=== PATIENT | male | born 1960 | race Caucasian/White ===

== ENCOUNTER 2021-05-27 12:16 | Emergency (ER) | payer BC, SELFPAY ==
[2021-05-27 12:52] VITALS: BP 131/81; PULSE 72; RESP 17; TEMP 36.4; O2SAT 96
--- NOTE | 2021-05-27 13:41 | PC.NURSE ---
Patient was triaged, and sent back into waiting room to wait for available room. patient reports he is unable to wait any longer and wished to leave. Patient AxO at this time. Ambulated self from ED.
== END 2021-05-27 13:41 | disposition left against medical advice (07) ==
LOC: ANHED 13:51
PROVIDERS: PCP Internal Medicine
DX: S61.217A Laceration without foreign body of left little finger without damage to nail, initial encounter (principal)
CPT/HCPCS: 99199

== ENCOUNTER → 2021-06-14 15:50 | Outpatient (CLI) | payer BC, SELFPAY ==
--- NOTE | ~2021-06-14 | XR_ITS ---
XR lumbar spine 2-3V DATE: 06/14/2021 16:03 INDICATION: Lumbar pain. Sciatica. TECHNIQUE: AP, lateral, coned lateral lumbosacral views COMPARISON: None FINDINGS: Diffuse osteopenia. Mild degenerative spurring of the lower thoracic spine. There is moderate loss of height and anterior wedging at T12, likely due to an old compression fractu re. There is minimal levoscoliosis of the lumbar spine. The lumbar pedicles and included lower thoracic pedicles are intact. No lumbar spine fracture or bone destruction is evident. The lumbar and lumbosacral interspaces are w ell preserved. The sacroiliac joints appear normal. Surgical clips overlie the left mid to upper abdomen. 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
== END ==
DX: M99.13 Subluxation complex (vertebral) of lumbar region (principal); M54.31 Sciatica, right side; M85.88 Other specified disorders of bone density and structure, other site
CPT/HCPCS: 72100

== ENCOUNTER 2023-05-07 09:31 | Outpatient (CLI) | payer BC, SELFPAY ==
--- NOTE | ~2023-05-07 | XR_ITS ---
Clinical Indication: Pneumonia PA and lateral views of the chest: Comparison: None Findings: The lungs are clear, without evidence of focal consolidation or pleural effusion. Cardiome diastinal silhouette is within normal limits. Bones and soft tissues are unremarkable. Impression: Normal chest. Reviewed, dictated and finalized at [facility]. [employer]OR Impression: Normal chest.
== END 2023-05-07 09:32 | disposition home or self-care (01) ==
LOC: ANHIMG 09:37
PROVIDERS: PCP Internal Medicine; Visit Provider Internal Medicine
DX: J18.9 Pneumonia, unspecified organism (principal)
CPT/HCPCS: 71046

== ENCOUNTER 2023-09-15 09:00 | Emergency (ER) | payer BC, SELFPAY ==
--- NOTE | ~2023-09-15 | XR_ITS ---
EXAMINATION: XR chest 1V portable DATE: 09/15/2023 10:45 INDICATION: Cough and chills TECHNIQUE: frontal view of the chest was obtained. COMPARISON: Chest radiograph dated 05/17/2023 FINDINGS: The lungs are clear with no focal airspace opacities, pulmonary edema, pleural effusion or pneumothor ax. The cardiomediastinal silhouette is normal. IMPRESSION: 1. No acute cardiopulmonary disease. Reviewed, dictated and finalized at location A.
[2023-09-15 09:00] VITALS: BP 127/88; PULSE 96; RESP 16; TEMP 36.6; O2SAT 98
[2023-09-15 10:31] VITALS: PULSE 86; RESP 18; O2SAT 99
[2023-09-15 10:51] LABS: Influenza A QL RT-PCR Negative (Negative); Influenza B QL RT-PCR Negative (Negative); RSV RNA, RT-PCR Negative (Negative); SARS-CoV-2 RNA PCR Negative (Negative)
--- NOTE | 2023-09-15 10:53 | ED.GENADULT ---
HPI - General Adult General Chief complaint: Upper Respiratory Infection Stated complaint: COUGH,CONGESTION,CHILLS Time Seen by Provider: 09/15/23 10:25 History of Present Illness HPI narrative: 63-year-old male presenting to the emergency department for evaluation for multiple complaints including postnasal drip cough congestion and gastritis. Patient states over the last few days he has been taking increased ibuprofen. Patient denies any cardiac history Related Data Allergies Allergy/AdvReac Type Severity Reaction Status Date / Time No Known Allergies Allergy Mild Verified 05/27/21 12:54 Review of Systems Review of Systems: All systems reviewed & are unremarkable except as noted in HPI and below Exam Narrative: APPEARANCE: Well appearing, no pain, no distress, well-nourished. HEAD: normocephalic, atraumatic. EYES: PERRLA/EOMI, conjunctivae clear. NOSE: Normal no drainage EARS:TMS clear with good light reflex. THROAT: Pharynx clear, no exudate. NECK: Supple. No adenopathy, no masses. RESPIRATORY: Airway patent, respirations nonlabored. Clear to auscultation bilaterally, no rales, rhonchi, wheezing. CARDIOVASCULAR: Regular rate and rhythm without murmurs rubs or gallops. ABDOMINAL: Soft, nontender, nondistended, normal bowel sounds MUSCULOSKELETAL: Moves all extremities. Strength/ROM intact, No edema, No calf tenderness. NEURO: Alert. Cranial nerves II through XII intact. Good gait. Good coordination SKIN: Warm, dry. Normal Color PSYCHIATRIC: Normal affect/mood. Course Course Emergency Course: Patient was discharged to home with outpatient follow-up Vital Signs Vital signs: Vital Signs Temperature 97.9 F 09/15/23 09:00 Pulse Rate 96 09/15/23 09:00 Respiratory Rate 16 09/15/23 09:00 Blood Pressure 127/88 09/15/23 09:00 Pulse Oximetry 98 09/15/23 09:00 Oxygen Delivery Room Air 09/15/23 09:00 Temperature 98.4 F 09/15/23 12:33 Pulse Rate 84 09/15/23 12:33 Respiratory Rate 19 09/15/23 12:33 Blood Pressure 137/83 09/15/23 12:33 Pulse Oximetry 98 09/15/23 12:33 Oxygen Delivery Room Air 09/15/23 11:19 Medical Decision Making MDM Narrative Medical decision making narrative: 63-year-old male presenting to the emergency department for evaluation cough congestion, fatigue and gastritis. Patient was negative for influenza RSV and for COVID. Chest x-ray showed no acute abnormality. Suspect viral etiology. No evidence of underlying pneumonia. Differential Diagnosis Differential Diagnosis: Pneumonia, RSV, COVID, influenza, viral etiology Vital Signs Vital Signs: Vital Signs Temperature 97.9 F 09/15/23 09:00 Pulse Rate 96 09/15/23 09:00 Respiratory Rate 16 09/15/23 09:00 Blood Pressure 127/88 09/15/23 09:00 Pulse Oximetry 98 09/15/23 09:00 Oxygen Delivery Room Air 09/15/23 09:00 Temperature 98.4 F 09/15/23 12:33 Pulse Rate 84 09/15/23 12:33 Respiratory Rate 19 09/15/23 12:33 Blood Pressure 137/83 09/15/23 12:33 Pulse Oximetry 98 09/15/23 12:33 Oxygen Delivery Room Air 09/15/23 11:19 Lab Data Labs: Lab Results 09/15/23 Range/Units 10:09 Influenza A (RT-PCR) Negative (Negative) Influenza B (RT-PCR) Negative (Negative) RSV (RT-PCR) Negative (Negative) SARS-CoV-2 RNA (RT-PCR) Negative (Negative) Discharge Plan Discharge Clinical Impression: Viral infection, Gastritis Patient Disposition: Home, Self-Care Condition: Stable Instructions: Antibiotic Form, Gastritis (DC), Diet for Stomach Ulcers and Gastritis (ED) Additional Instructions: Take omeprazole daily. Avoid alcohol and avoid NSAIDs. Have close follow-up with GI as outpatient. Tylenol for body aches and pain control. If you have any worsening symptoms please call or return to the emergency department. Follow-up/Referrals: Karthik,MD René [Primary Care Provider] - Wild Amador MD [Physician
[2023-09-15 11:01] VITALS: BP 127/89; PULSE 89; RESP 21; O2SAT 98
[2023-09-15 11:19] VITALS: BP 127/89; PULSE 88; RESP 18; O2SAT 98; O2SAT 99
[2023-09-15 12:00] VITALS: BP 137/83; PULSE 85; RESP 19; O2SAT 98
[2023-09-15 12:33] VITALS: BP 137/83; PULSE 84; RESP 19; TEMP 36.9; O2SAT 98
== END 2023-09-15 12:33 | disposition home or self-care (01) ==
PROVIDERS: Emergency Provider Emergency Medicine; PCP Internal Medicine
DX: B34.9 Viral infection, unspecified (principal); K29.70 Gastritis, unspecified, without bleeding; Z20.822 Contact with and (suspected) exposure to COVID-19
CPT/HCPCS: 71045; 87637; 99283